=== PATIENT | male | born 1995 | race Caucasian/White ===

== ENCOUNTER 2017-10-07 02:26 | Emergency (ER) | payer OTHER ==
[~2017-10-07] VITALS: Ht 177.8 cm; Wt 65.9 kg
[~2017-10-07 02:26] MED LIST: VYVANSE40 MG PO
[2017-10-07 02:30] VITALS: BP 135/81; TEMP 97.9
[2017-10-07] MEDS ORDERED: VALTREX1 GM PO (02:33)
[2017-10-07 04:38] VITALS: PULSE 77
== END 2017-10-07 04:38 | disposition home or self-care (01) ==
LOC: COL.ER 02:26
DX: S01.111A Laceration without foreign body of right eyelid and periocular area, initial encounter (principal); W22.8XXA Striking against or struck by other objects, initial encounter; Y92.59 Other trade areas as the place of occurrence of the external cause